=== PATIENT | female | born 1945 | race Caucasian/White ===

== ENCOUNTER 2023-11-11 14:55 | Outpatient (RCR) | payer OTHER, SELFPAY | END 2023-11-11 23:59 | disposition home or self-care (01) | LOC: RPT 14:55 | PROVIDERS: ATTENDING PHYSICIAN Family Medicine | DX: M16.12 Unilateral primary osteoarthritis, left hip (principal); Z73.6 Limitation of activities due to disability; R26.2 Difficulty in walking, not elsewhere classified; M62.81 Muscle weakness (generalized); R26.89 Other abnormalities of gait and mobility | CPT/HCPCS: 97010; 97110; 97140; 97162 ==

== ENCOUNTER 2023-12-12 14:58 | Outpatient (RCR) | payer OTHER, SELFPAY | END 2023-12-12 23:59 | disposition home or self-care (01) | LOC: RPT 14:58 | PROVIDERS: ATTENDING PHYSICIAN Family Medicine | DX: M16.12 Unilateral primary osteoarthritis, left hip (principal); Z73.6 Limitation of activities due to disability; R26.2 Difficulty in walking, not elsewhere classified; M62.81 Muscle weakness (generalized); R26.89 Other abnormalities of gait and mobility | CPT/HCPCS: 97010; 97110; 97140 ==

== ENCOUNTER 2024-01-03 15:01 | Outpatient (RCR) | payer OTHER, SELFPAY | END 2024-01-10 08:26 | disposition home or self-care (01) | LOC: RPT 15:01 | PROVIDERS: ATTENDING PHYSICIAN Family Medicine | DX: M16.12 Unilateral primary osteoarthritis, left hip (principal); Z73.6 Limitation of activities due to disability | CPT/HCPCS: 97010; 97110 ==

== ENCOUNTER → 2024-07-31 14:59 | Outpatient (REF) | payer OTHER, SELFPAY | LOC: WDC 14:59 | PROVIDERS: ATTENDING PHYSICIAN Family Medicine | DX: Z12.31 Encounter for screening mammogram for malignant neoplasm of breast (principal) | CPT/HCPCS: 77063; 77067 ==

== ENCOUNTER 2025-07-08 06:11 | Day surgery (SDC) | payer OTHER, SELFPAY ==
[2025-06-19 11:06] LABS: Hematocrit 44.2 % (37.0-47.0); Hemoglobin 14.5 g/dL (12.0-16.0); Mean Corp Hgb Conc. 32.8 g/dL (33.0-37.0); Mean Corpuscular Volume 92.3 fL (81.0-99.0); Platelet Count 262 10^3/uL (130-400); Red Cell Dist. Width 13.4 % (11.5-14.5)
[2025-06-19 12:37] LABS: Glycohemoglobin (HgbA1c) 5.6 % (4.0-5.9)
[2025-06-19 13:50] VITALS: BMI 32.7
[2025-06-19 14:56] VITALS: BMI 32.7
[2025-06-19 17:05] LABS: ALT (SGPT) 16 U/L (0-35); AST (SGOT) 20 U/L (14-36); Albumin 3.9 g/dl (3.5-5.0); Alkaline Phosphatase 48 U/L (38-126); Blood Urea Nitrogen 14 mg/dl (7-17); Calcium 9.3 mg/dl (8.4-10.2); Carbon Dioxide 28 mmol/L (22-30); Chloride 107 mmol/L (98-107); Estimated Creatinine Clearance 71 ml/min; Glucose 69 mg/dl (70-99); Potassium 4.2 mmol/L (3.5-5.1); Sodium 138 mmol/L (135-145); Total Protein 6.6 g/dl (6.3-8.2); eGFR > 60.00
--- NOTE | 2025-06-24 11:32 | VNURNOTE ---
Addendum entered by Alexa Medina RN 06/25/25 11:48:
Rec'ed call back from pt.
Patient is scheduled for an elective R THR on 07/08 - she is a same day patient. Spoke with patient prior to surgery. Introduced role of [facility] Liaison. Patient has a cane and rolling walker.
Discussed [facility] joint protocol and post surgical plans.
Reviewed that she will have VN services initially and will then start outpatient PT.
Patient selects [facility] for home care needs and will go to outpatient PT. Scheduled for 07/10 .
Patient is in agreement with plan and states that her spouse will be home with her. Advised to bring RW with her day of surgery. [facility] contact number provided. Referral accepted in [facility].
Plan: [facility] per [facility] joint protocol 07/08 then outpt PT on 07/10
Original Note:
[facility] liaison called pt to discuss same day joint protocol. No answer, left message. [facility] referral in [facility].
--- NOTE | 2025-06-26 14:53 | CM ---
CM reviewed medical records. [facility] has been confirmed.
[2025-07-08] VITALS (15 sets, daily range): BP systolic 101–138; BP diastolic 51–96; PULSE 70; O2SAT 99; BMI 32.7
[2025-07-08] MEDS: TYLENOL 650 MG PO (10:10)
[2025-07-08] MEDS: CELEBREX 200 MG PO (10:10)
[2025-07-08] MEDS: NORMOSOL-R/PLASMALYTE-A 1000 IV (10:10)
[2025-07-08] MEDS: DILAUDID 0.25 MG IV ×2 (13:46→14:04)
[2025-07-08] MEDS: DILAUDID 0.5 MG IV (14:17)
[2025-07-08] MEDS: ROXICODONE 5 MG PO (15:28)
[2025-07-08] MEDS: ANCEF 5 IV (15:29)
[2025-07-08] MEDS: CYKLOKAPRON 650 MG PO (15:29)
== END 2025-07-08 17:00 | disposition home health service (06) ==
LOC: SDS 06:11
PROVIDERS: ATTENDING PHYSICIAN Specialist; FAMILY PHYSICIAN Family Medicine; OTHER PHYSICIAN Physician Assistant
DX: M16.11 Unilateral primary osteoarthritis, right hip (principal); M51.369 Other intervertebral disc degeneration, lumbar region without mention of lumbar back pain or lower extremity pain
CPT/HCPCS: 27130; 36415; 73502; 80053; 83036; 85027; 87070; 93005; 97116; 97162; 97530; C1713; C1776

== ENCOUNTER 2025-07-10 06:08 | Outpatient (RCR) | payer OTHER, SELFPAY | END 2025-07-10 23:59 | disposition home or self-care (01) | LOC: RPT 06:08 | PROVIDERS: ATTENDING PHYSICIAN Specialist; FAMILY PHYSICIAN Family Medicine | DX: Z47.1 Aftercare following joint replacement surgery (principal); Z73.6 Limitation of activities due to disability; M62.81 Muscle weakness (generalized); M25.551 Pain in right hip; R26.89 Other abnormalities of gait and mobility; Z96.643 Presence of artificial hip joint, bilateral | CPT/HCPCS: 97110; 97162; 97530 ==

== ENCOUNTER 2025-08-09 11:23 | Outpatient (RCR) | payer OTHER, SELFPAY | END 2025-08-13 10:19 | disposition home or self-care (01) | LOC: RPT 11:23 | PROVIDERS: ATTENDING PHYSICIAN Specialist; FAMILY PHYSICIAN Family Medicine | DX: Z47.1 Aftercare following joint replacement surgery (principal); Z73.6 Limitation of activities due to disability; M62.81 Muscle weakness (generalized); M25.551 Pain in right hip; R26.89 Other abnormalities of gait and mobility; Z96.643 Presence of artificial hip joint, bilateral | CPT/HCPCS: 97010; 97110; 97116; 97140; 97530 ==

== ENCOUNTER → 2025-08-12 12:40 | Outpatient (REF) | payer OTHER, SELFPAY | LOC: WDC 12:40 | PROVIDERS: ATTENDING PHYSICIAN Family Medicine | DX: Z12.31 Encounter for screening mammogram for malignant neoplasm of breast (principal) | CPT/HCPCS: 77063; 77067 ==